=== PATIENT | female | born 2000 | race Native Hawaiian/Other Pacific Islander ===

== ENCOUNTER 2021-03-13 23:35 | Emergency (ER) | payer OTHER ==
[~2021-03-13] VITALS: Ht 157.5 cm; Wt 104.3 kg
[2021-03-13 23:50] VITALS: TEMP 98.6
[2021-03-14 00:35] LABS: PLATELET COUNT 424 K/uL (152-353)
[2021-03-14 00:36] LABS: POTASSIUM 3.9 mmol/L (3.6-5.2)
[2021-03-14 00:44] LABS: PARTIAL THROMBOPLASTIN TIME 26.5 SECONDS (24.5-33.6)
[2021-03-14 01:47] VITALS: BP 114/80
== END 2021-03-14 01:48 | disposition home or self-care (01) ==
LOC: ED 23:35
PROVIDERS: Family Medicine
DX: R51.9 Headache, unspecified (principal); R42 Dizziness and giddiness; R53.83 Other fatigue; Z03.818 Encounter for observation for suspected exposure to other biological agents ruled out
CPT/HCPCS: 36415; 80053; 81025; 85027; 85610; 85730; 87635; 96372; 99283; J1885; U0003

== ENCOUNTER 2021-04-20 22:04 | Emergency (ER) | payer OTHER ==
[~2021-04-20] VITALS: Ht 157.5 cm; Wt 106.6 kg
[2021-04-20 23:09] VITALS: BP 141/76; TEMP 99
== END 2021-04-20 23:09 | disposition home or self-care (01) ==
LOC: ED 22:04
DX: L55.9 Sunburn, unspecified (principal)
CPT/HCPCS: 99282

== ENCOUNTER 2021-08-16 01:11 | Emergency (ER) | payer OTHER ==
[~2021-08-16] VITALS: Ht 160 cm; Wt 108.0 kg
[2021-08-16 02:20] VITALS: BP 128/75; TEMP 98
== END 2021-08-16 02:20 | disposition home or self-care (01) ==
LOC: ED 01:11
DX: S90.111D Contusion of right great toe without damage to nail, subsequent encounter (principal); W22.8XXD Striking against or struck by other objects, subsequent encounter; Y92.096 Garden or yard of other non-institutional residence as the place of occurrence of the external cause
CPT/HCPCS: 99282

== ENCOUNTER 2021-09-11 23:01 | Emergency (ER) | payer OTHER ==
[~2021-09-11] VITALS: Ht 160 cm; Wt 108.0 kg
[2021-09-12 00:41] VITALS: BP 122/62; TEMP 98.2
== END 2021-09-12 00:41 | disposition home or self-care (01) ==
LOC: ED 23:01
DX: H60.8X2 Other otitis externa, left ear (principal)
CPT/HCPCS: 96372; 99283; J0696; J1885

== ENCOUNTER 2021-10-24 07:20 | Emergency (ER) | payer OTHER ==
[~2021-10-24] VITALS: Ht 160 cm; Wt 111.1 kg
[2021-10-24 08:33] LABS: PLATELET COUNT 389 K/uL (152-353)
[2021-10-24 08:39] LABS: POTASSIUM 3.9 mmol/L (3.6-5.2)
[2021-10-24 11:21] VITALS: BP 125/84; TEMP 98.9
== END 2021-10-24 11:35 | disposition home or self-care (01) ==
LOC: ED 07:20
PROVIDERS: Emergency Medicine
DX: R42 Dizziness and giddiness (principal); E03.8 Other specified hypothyroidism; J32.8 Other chronic sinusitis
CPT/HCPCS: 36415; 80053; 80307; 81000; 84439; 84443; 85027; 96360; 99284

== ENCOUNTER 2022-03-12 11:19 | Emergency (ER) | payer OTHER ==
[~2022-03-12] VITALS: Ht 160 cm; Wt 111.1 kg
[2022-03-12 12:56] VITALS: BP 118/56; TEMP 98.9
== END 2022-03-12 12:56 | disposition home or self-care (01) ==
LOC: ED 11:19
DX: J11.1 Influenza due to unidentified influenza virus with other respiratory manifestations (principal); Z20.822 Contact with and (suspected) exposure to COVID-19
CPT/HCPCS: 87502; 87635; 99283; U0003